=== PATIENT | male | born 1970 | race African-American/Black ===

== ENCOUNTER 2022-05-30 15:51 | Inpatient (IN) | payer OTHER ==
[2022-05-30 16:25] VITALS: BMI 16.9
[2022-05-30] MEDS ORDERED: BENZONATATE 200 MG CAPSULE PO PRN (17:15)
[2022-05-30] MEDS ORDERED: IBUPROFEN 400 MG TABLET (FP) PO PRN (17:15)
[2022-05-30] MEDS ORDERED: IBUPROFEN 600 MG TABLET (FP) PO PRN (17:15)
[2022-05-30] MEDS ORDERED: ACETAMINOPHEN 325 MG TABLET (FP) PO PRN (17:15)
[2022-05-30] MEDS ORDERED: NICOTINE 10 MG CARTRIDGE (INHALER) IH PRN (17:15)
[2022-05-30] MEDS ORDERED: BENZOCAINE/MENTHOL (CHLORASEPTIC ) LOZENGE MM PRN (17:15)
[2022-05-30] MEDS ORDERED: METHOCARBAMOL 500 MG TABLET PO PRN (17:15)
[2022-05-30] MEDS ORDERED: LOPERAMIDE HCL 2 MG CAPSULE PO PRN (17:15)
[2022-05-30] MEDS ORDERED: POLYETHYLENE GLYCOL (HEALTHYLAX) 3350 17 GM PACKET PO PRN (17:15)
[2022-05-30] MEDS ORDERED: NALOXONE HCL (KLOXXADO) 8 MG SPRAY NS PRN (17:15)
[2022-05-30] MEDS ORDERED: hydrOXYzine PAMOATE 25 MG CAPSULE (FP) PO PRN (17:15)
[2022-05-30] MEDS ORDERED: MAG HYDROX/AL HYDROX/SIMETH 30 ML UNIT-DOSE CUP PO PRN (17:15)
[2022-05-30] MEDS ORDERED: DICYCLOMINE HCL 10 MG CAPSULE PO PRN (17:15)
[2022-05-30] MEDS ORDERED: ONDANSETRON *ODT* 4 MG TABLET SL PRN (17:15)
[2022-05-30] MEDS ORDERED: NALOXONE HCL 0.4 MG/ML VIAL IM PRN (17:15)
[2022-05-30] MEDS ORDERED: BISMUTH SUBSALICYLATE 524 MG/30 ML PO PRN (17:15)
[2022-05-30] MEDS ORDERED: NICOTINE POLACRILEX 2 MG GUM BUC PRN (17:15)
[2022-05-30] MEDS ORDERED: guaiFENesin 600 MG TABLET.ER (FP) PO PRN (17:15)
[2022-05-30] MEDS ORDERED: MAGNESIUM HYDROX 2400MG/30ML ORAL SUSPENSION 30 ML CUP PO PRN (17:15)
[2022-05-30] MEDS ORDERED: TUBERCULIN PPD 5 TU/0.1ML VIAL ID ONE (18:43)
[2022-05-30] MEDS: THIAMINE HCL 100 MG TABLET (FP) PO SCH (22:29)
[2022-05-30] MEDS: MELATONIN 5 MG TABLETS PO SCH (22:29)
[2022-05-31] MEDS: PRENATAL VITAMINS W/ FOLIC ACID TABLET (FP) PO SCH (10:21)
[2022-05-31] MEDS ORDERED: methaDONE HCL 10 MG TABLET (FOR DETOX USE ONLY) PO ONE (11:02)
[2022-05-31] MEDS ORDERED: cloNIDine HCL 0.1 MG TABLET PO PRN (11:02)
[2022-05-31 11:36] LABS: ALBUMIN 2.7 g/dl (3.4-5.0)
[2022-05-31 11:37] LABS: BLOOD UREA NITROGEN 12.7 mg/dL (7-18); CALCIUM 9.3 mg/dL (8.5-10.1)
[2022-05-31 11:38] LABS: HEMATOCRIT 30.9 % (35.4-49); HEMOGLOBIN 10.4 GM/dL (11.7-16.9); MCH 27.2 pg (25.7-33.7); MCHC 33.7 g/dl (32.0-35.9); MEAN CELL VOLUME 80.7 fl (80-96); MEAN PLT VOLUME 10.1 fl (7.5-11.1); PLATELET COUNT 322 10^3/uL (134-434); RBC 3.83 M/mm3 (4.00-5.60); RDW 13.5 % (11.9-15.9)
[2022-05-31 11:40] LABS: CREATININE 0.7 mg/dL (0.55-1.3)
[2022-05-31 11:42] LABS: BILIRUBIN,TOTAL 0.4 mg/dL (0.2-1); TOT PROT 6.2 g/dl (6.4-8.2)
[2022-05-31] MEDS: BUDESONIDE/FORMETEROL FUMARATE 160/4.5 mcg INHALER IH SCH ×2 (12:20→22:11)
[2022-05-31] MEDS: amLODIPine BESYLATE 10 MG TABLET (FP) PO SCH (12:20)
[2022-05-31] MEDS: ALBUTEROL SO4 HFA INHALER IH SCH ×4 (12:24→22:19)
[2022-05-31] MEDS: MELATONIN 5 MG TABLETS PO SCH (22:11)
[2022-05-31] MEDS: THIAMINE HCL 100 MG TABLET (FP) PO SCH (22:11)
[2022-06-01] MEDS: ALBUTEROL SO4 HFA INHALER IH SCH ×2 (06:16→06:17)
[2022-06-01] MEDS ORDERED: ALBUTEROL SO4 HFA INHALER IH PRN (09:26)
[2022-06-01] MEDS ORDERED: METOPROLOL TARTRATE 25 MG TABLET (FP) PO ONE (09:35)
[2022-06-01] MEDS: PRENATAL VITAMINS W/ FOLIC ACID TABLET (FP) PO SCH (10:09)
[2022-06-01] MEDS: BUDESONIDE/FORMETEROL FUMARATE 160/4.5 mcg INHALER IH SCH ×2 (10:09→22:12)
[2022-06-01] MEDS: amLODIPine BESYLATE 10 MG TABLET (FP) PO SCH (10:10)
[2022-06-01] MEDS: MELATONIN 5 MG TABLETS PO SCH (22:11)
[2022-06-01] MEDS: THIAMINE HCL 100 MG TABLET (FP) PO SCH (22:11)
[2022-06-02] MEDS: BUDESONIDE/FORMETEROL FUMARATE 160/4.5 mcg INHALER IH SCH ×2 (10:00→22:07)
[2022-06-02] MEDS ORDERED: methaDONE HCL 10 MG TABLET (FOR DETOX USE ONLY) PO ONE (10:00)
[2022-06-02] MEDS: amLODIPine BESYLATE 10 MG TABLET (FP) PO SCH (10:21)
[2022-06-02] MEDS: PRENATAL VITAMINS W/ FOLIC ACID TABLET (FP) PO SCH (10:21)
[2022-06-02] MEDS: diazePAM 5 MG TABLET PO PRN ×3 (12:50→22:07)
[2022-06-02] MEDS: MELATONIN 5 MG TABLETS PO SCH (22:07)
[2022-06-02] MEDS: THIAMINE HCL 100 MG TABLET (FP) PO SCH (22:07)
[2022-06-03] MEDS: amLODIPine BESYLATE 10 MG TABLET (FP) PO SCH (10:11)
[2022-06-03] MEDS: BUDESONIDE/FORMETEROL FUMARATE 160/4.5 mcg INHALER IH SCH ×2 (10:11→22:02)
[2022-06-03] MEDS: PRENATAL VITAMINS W/ FOLIC ACID TABLET (FP) PO SCH (10:11)
[2022-06-03] MEDS: diazePAM 5 MG TABLET PO PRN ×2 (17:54→22:00)
[2022-06-03] MEDS: MELATONIN 5 MG TABLETS PO SCH (22:00)
[2022-06-03] MEDS: THIAMINE HCL 100 MG TABLET (FP) PO SCH (22:01)
[2022-06-04] MEDS ORDERED: methaDONE HCL 10 MG TABLET (FOR DETOX USE ONLY) PO ONE (10:00)
[2022-06-04] MEDS: amLODIPine BESYLATE 10 MG TABLET (FP) PO SCH (10:24)
[2022-06-04] MEDS: PRENATAL VITAMINS W/ FOLIC ACID TABLET (FP) PO SCH (10:24)
[2022-06-04] MEDS: BUDESONIDE/FORMETEROL FUMARATE 160/4.5 mcg INHALER IH SCH ×2 (10:25→22:16)
[2022-06-04] MEDS: diazePAM 5 MG TABLET PO PRN ×2 (10:26→22:17)
[2022-06-04] MEDS ORDERED: METHIMAZOLE 10 MG TABLET PO SCH (22:15)
[2022-06-04] MEDS: MELATONIN 5 MG TABLETS PO SCH (22:17)
[2022-06-04] MEDS: THIAMINE HCL 100 MG TABLET (FP) PO SCH (22:17)
[2022-06-04] MEDS: METHIMAZOLE 10 MG TABLET PO SCH (23:34)
[2022-06-05] MEDS: METHIMAZOLE 10 MG TABLET PO SCH (07:25)
[2022-06-05 09:38] VITALS: BP 125/83; PULSE 114; RESP 18; TEMP 97.8
== END 2022-06-05 09:42 | disposition other institution (70) | DRG 773 ==
LOC: YASAS 15:51 → UNDOADMIN 17:44 → Y3N 17:44 → UNDODISIN 06-04 16:08
PROVIDERS: ADMIT Allergy & Immunology; ATTEND Surgery
PROC: HZ2ZZZZ Detoxification Services for Substance Abuse Treatment (ICD-10-PCS; principal; 2022-05-30)
DX: F11.23 Opioid dependence with withdrawal (principal); F17.210 Nicotine dependence, cigarettes, uncomplicated; E05.90 Thyrotoxicosis, unspecified without thyrotoxic crisis or storm; I10 Essential (primary) hypertension; J45.20 Mild intermittent asthma, uncomplicated; R00.2 Palpitations; Z59.02 Unsheltered homelessness
CPT/HCPCS: 36415; 80053; 85027; 86780; 87811; 93005; 93010; C9803-CS; U0003; U0005

== ENCOUNTER 2022-06-04 11:52 | Emergency (ER) | payer OTHER ==
[2022-06-04 11:57] VITALS: TEMP 98.8; BMI 19.3
[2022-06-04] MEDS ORDERED: SODIUM CHLORIDE 0.9% 500 ML INFUS.BAG IV ONE (12:11)
[2022-06-04 12:36] LABS: EOS % 2.9 % (0-4.5); HEMATOCRIT 33.6 % (35.4-49); HEMOGLOBIN 11.2 GM/dL (11.7-16.9); LYMPH % 25.1 % (8-40); MCH 26.9 pg (25.7-33.7); MCHC 33.2 g/dl (32.0-35.9); MEAN PLT VOLUME 9.9 fl (7.5-11.1); MONO % 10.8 % (3.8-10.2); NEUT % 60.2 % (42.8-82.8); PLATELET COUNT 273 10^3/uL (134-434); RBC 4.14 M/mm3 (4.00-5.60); RDW 13.8 % (11.9-15.9); WHITE BLOOD COUNT 8.1 K/mm3 (4.0-10.0)
[2022-06-04] MEDS ORDERED: LORazepam 2 MG/ML SDV VIAL IVPUSH ONE (12:36)
[2022-06-04 12:57] LABS: INR 1.03 (0.83-1.09)
[2022-06-04 13:00] LABS: ACTIVATED PTT 32.4 SECONDS (25.2-36.5); CALCIUM 9.4 mg/dL (8.5-10.1); MAGNESIUM 1.9 mg/dL (1.8-2.4)
[2022-06-04 13:01] LABS: ALBUMIN 2.9 g/dl (3.4-5.0)
[2022-06-04 13:03] LABS: CREATININE 0.7 mg/dL (0.55-1.3)
[2022-06-04 13:04] LABS: PHOSPHOROUS 4.8 mg/dL (2.5-4.9)
[2022-06-04 13:05] LABS: BILIRUBIN,TOTAL 0.2 mg/dL (0.2-1); TOT PROT 6.9 g/dl (6.4-8.2)
[2022-06-04 14:03] LABS: URINE APPEARANCE CLEAR; URINE BILIRUBIN NEGATIVE (NEGATIVE); URINE COLOR YELLOW; URINE GLUCOSE (UA) NEGATIVE (NEGATIVE); URINE KETONE NEGATIVE (NEGATIVE); URINE LEUK ESTERASE NEGATIVE (NEGATIVE); URINE NITRITE NEGATIVE (NEGATIVE); URINE PROTEIN NEGATIVE (NEGATIVE); URINE UROBILINOGEN 0.2 mg/dL (0.2-1.0)
[2022-06-04 14:06] LABS: COCAINE, UR NEGATIVE (NEGATIVE)
[2022-06-04 14:07] LABS: METHADONE, UR POSITIVE (NEGATIVE); OPIATES, URI NEGATIVE (NEGATIVE); PHENCYCLIDINE,URINE NEGATIVE (NEGATIVE); URINE AMPHETAMINES NEGATIVE (NEGATIVE); URINE BARBITURATES NEGATIVE (NEGATIVE); URINE BENZODIAZEPINES POSITIVE (NEGATIVE)
[2022-06-04] MEDS ORDERED: propRANOLol HCL 10 MG TABLET PO ONE (16:40)
[2022-06-04] MEDS ORDERED: METHIMAZOLE 10 MG TABLET PO ONE (16:41)
[2022-06-04] MEDS ORDERED: propRANOLol HCL 10 MG TABLET ONE (16:45)
[2022-06-04 17:24] VITALS: BP 123/79; PULSE 12; RESP 23
== END 2022-06-04 21:21 | disposition home or self-care (01) ==
LOC: JER 11:52
PROC: 3E033GC Introduction of Other Therapeutic Substance into Peripheral Vein, Percutaneous Approach (ICD-10-PCS; principal; 2022-06-04)
DX: R00.0 Tachycardia, unspecified (principal); E05.90 Thyrotoxicosis, unspecified without thyrotoxic crisis or storm; R74.8 Abnormal levels of other serum enzymes; F13.10 Sedative, hypnotic or anxiolytic abuse, uncomplicated; F11.20 Opioid dependence, uncomplicated; K83.1 Obstruction of bile duct
CPT/HCPCS: 36415; 74177-TC; 76705-TC; 80053; 80307; 81003; 82550; 83735; 84100; 84439; 84443; 84481; 84484; 85025; 85610; 85730; 87086; 93005; 93010; 93308; 99285-25